=== PATIENT | female | born 1990 | race Caucasian/White ===

== ENCOUNTER 2017-07-05 13:54 | Emergency (ER) | payer BC ==
[2017-07-05 14:05] VITALS: BP 109/67; PULSE 67; RESP 18; TEMP 98.2; O2SAT 98
== END 2017-07-05 14:00 | disposition left against medical advice (07) ==
DX: Z53.21 Procedure and treatment not carried out due to patient leaving prior to being seen by health care provider (principal)

== ENCOUNTER 2017-09-28 02:24 | Emergency (ER) | payer SELFPAY ==
[2017-09-28 02:32] VITALS: RESP 16
[2017-09-28 03:40] LABS: COLOR YELLOW; LEUKOCYTE ESTERASE,URINE TRACE (NEGATIVE); NITRITE,URINE NEGATIVE (NEGATIVE)
[2017-09-28 03:46] LABS: BACTERIA 4+ /hpf (NONE SEEN); RBC,URINE 50-182 /hpf (0-3); WBC,URINE 50-182 /hpf (0-3)
--- NOTE | 2017-09-28 03:57 | EDPHY ---
H & P Stated Complaint: c/o severe lower abd/lower back pain/blood in urine x 1 week Time Seen by Provider: 09/28/17 02:59 HPI/ROS: Chief Complaint: Hematuria, abdominal pain HPI: 27-year-old woman had urinary tract infection symptoms of increasing urination with urination and hematuria for the last 3 days. She has a history of urinary tract infections and kidney stones in the past. She was seen at urgent care started on Keflex. Patient states that her pain in her lower pelvis has been worsening. It feels similar to prior episodes. Some nausea no vomiting. No fevers or chills. Patient's arms him some low back cramping pain. In his bilateral. Last menstrual period was 10 days ago. She is not sexually active. Has never been . Is not having any vaginal bleeding at this time. ROS: 10 point Review of Systems is negative except as noted in the HPI. PMH: Kidney stones Social History: No smoking Family History: non-contributory Physical Exam: Gen: Awake, Alert, No Distress HEENT: Nose: no rhinorrhea Eyes: PERRLA, EOMI Mouth: Moist mucosa Neck: Supple, no JVD Chest: nontender, lungs clear to auscultation Heart: S1, S2 normal, no murmur Abd: Soft, very mild suprapubic tenderness, no other abdominal tenderness, no guarding Back: no CVA tenderness, no midline tenderness Ext: no edema, non-tender Skin: no rash Neuro: CN II-XII intact, Sensation grossly intact, Strength 5/5 in bilateral upper and lower extremities - Medical/Surgical History Hx Asthma: No Hx Chronic Respiratory Disease: No Hx Diabetes: No Hx Cardiac Disease: No Hx Renal Disease: No Hx Cirrhosis: No Hx Alcoholism: No Hx HIV/AIDS: No Hx Splenectomy or Spleen Trauma: No Other PMH: kidney stones, depression - Social History Smoking Status: Former smoker Constitutional: Initial Vital Signs Heart Rate 73 09/28/17 02:28 Respiratory Rate 16 09/28/17 02:28 Blood Pressure 112/73 09/28/17 02:28 O2 Sat (%) 97 09/28/17 02:28 O2 Delivery Mode Room Air Allergies/Adverse Reactions: acetaminophen [From Percocet] Allergy (Intermediate, Verified 09/28/17 02:33) Vomiting oxycodone [From Percocet] Allergy (Intermediate, Verified 09/28/17 02:33) Vomiting Home Medications: Medication Instructions Recorded Keflex 09/28/17 Medical Decision Making ED Course/Re-evaluation: Patient presenting with hematuria and lower pelvic pain. Urinalysis is consistent with hematuria with no significant findings suggestive of urinary tract infection. I think her symptoms are consistent with kidney stone which she has had in the past. Patient actually states she has felt much better since coming the emergency department without any treatment. We have had a long conversation regarding imaging to evaluate for kidney stone. Patient currently is uninsured and does not want have any expensive imaging done at this time. She would prefer to follow up with Urology as an outpatient. I have counseled her that should her symptoms worsen, should she have fevers or chills, uncontrolled nausea vomiting, worsening pain, or any other concerns she needs to return for further evaluation. Patient agrees to do so. Will refer her for outpatient follow-up with Urology. - Data Points Laboratory Results: 09/28/17 02:40 Urine Color YELLOW Urine Appearance MODERATELY TURBID Urine pH 5.0 (5.0-7.5) Ur Specific Lillian 1.027 (1.002-1.030) Urine Protein 2+ H (NEGATIVE) Urine Ketones NEGATIVE (NEGATIVE) Urine Blood 3+ H (NEGATIVE) Urine Nitrate NEGATIVE (NEGATIVE) Urine Bilirubin NEGATIVE (NEGATIVE) Urine Urobilinogen NEGATIVE EU EU (0.2-1.0) Ur Leukocyte Esterase TRACE H (NEGATIVE) Urine RBC Pending Urine WBC Pending Ur Epithelial Cells Pending Urine Glucose NEGATIVE (NEGATIVE) Departure - Departure Disposition: Home, Routine, Self-Care Clinical Impression: Hematuria Condition: Good Instructions: Hematuria (ED), Renal Colic (ED) Additional Instructions: Follow up with Urology, call later today for the next available appointment. Return to the emergency department for increasing pain, fevers or chills, nausea , vomiting, lightheadedness, or any other concerns. You may take ibuprofen 600 mg 3 times a day as needed for pain. You may also take acetaminophen [id number] as well. Referrals: Katherine Suarez MD [Medical Doctor] - As per Instructions
[2017-09-28] MEDS ORDERED: HYDROCOD/APAP 5/325 PREPACK#6 BTL TAKEHOME ONE (04:11)
[2017-09-28 04:27] VITALS: BP 112/67; PULSE 76; O2SAT 98
== END 2017-09-28 04:27 | disposition home or self-care (01) ==
DX: R31.9 Hematuria, unspecified (principal); Z87.891 Personal history of nicotine dependence

== ENCOUNTER 2017-10-01 10:42 | Emergency (ER) | payer SELFPAY ==
[2017-10-01 10:58] VITALS: TEMP 98.4
--- NOTE | 2017-10-01 14:34 | EDPHY ---
H & P Time Seen by Provider: 10/01/17 14:31 HPI/ROS: Chief complaint. Abdominal pain Patient was seen by Dr. Amaro and not by me. Smoking Status: Former smoker Constitutional: Initial Vital Signs Temperature (C) 36.9 C 10/01/17 10:50 Heart Rate 70 10/01/17 10:50 Respiratory Rate 16 10/01/17 10:50 Blood Pressure 100/72 10/01/17 10:50 O2 Sat (%) 94 10/01/17 10:50 O2 Delivery Mode Room Air Allergies/Adverse Reactions: acetaminophen [From Percocet] Allergy (Intermediate, Verified 10/01/17 10:53) Vomiting oxycodone [From Percocet] Allergy (Intermediate, Verified 10/01/17 10:53) Vomiting Home Medications: Medication Instructions Recorded Keflex 09/28/17 Hydrocodone/APAP 5/325 [Foley 1 - 2 tab PO Q4H PRN #14 tab 10/01/17 5/325 (RX)] Medical Decision Making - Diagnostics Imaging Results: Imaging Impressions Abdomen/Pelvis CT 10/01/17 14:41 Impression: 1. Mild hydronephrosis on the left secondary to a calculus at the left UPJ as detailed above. 2. Mild thickening of the hoang of the left renal pelvis. Rule out superimposed infection/inflammation. 3. Follicular cyst suspected left adnexa. Attention: This CT examination is specifically designed to evaluate patients who are clinically suspected of having acute obstructive uropathy. This examination does not use radiographic contrast, and as such, provides only a limited evaluation of the abdomen, pelvis and retroperitoneum. If there is further clinical suspicion for pathological conditions other than obstructive uropathy, a complete CT evaluation of the abdomen and pelvis utilizing intravenous, oral, and rectal contrast should be considered. Findings discussed with Sunny Amaro MD at 15:40 hour, 10/01/2017. Pelvic/Renal Ultrasound 10/01/17 16:06 Impression: 1. No ovarian torsion or significant free fluid. 2. Left ovarian 3.6 x 3.3 x 2.9 cm simple cyst. 3. Left ovarian complex cyst 2 x 1.1 x 0.9 cm cyst or follicle. Recommendation: Follow-up ultrasound in 6-12 weeks. Findings and recommendations discussed with Emergency Department physician, Sunny Amaro MD at 18:06 hour, 10/01/2017. Final report concurs with initial preliminary interpretation. - Data Points Laboratory Results: Laboratory Results 10/01/17 14:40 10/01/17 14:40 10/01/17 10/01/17 10/01/17 14:40 14:40 14:40 WBC RBC Hgb Hct MCV MCH MCHC RDW Plt Count MPV Neut % (Auto) Lymph % (Auto) Howard % (Auto) Eos % (Auto) Baso % (Auto) Nucleat RBC Rel Count Absolute Neuts (auto) Absolute Lymphs (auto) Absolute Monos (auto) Absolute Eos (auto) Absolute Basos (auto) Absolute Nucleated RBC Immature Gran % Immature Gran # Sodium 140 mEq/L mEq/L (134-144) Potassium 3.5 mEq/L mEq/L (3.5-5.2) Chloride 104 mEq/L mEq/L (97-110) Carbon Dioxide 24 mEq/l mEq/l (22-31) Anion Gap 12 mEq/L mEq/L (8-16) BUN 5 mg/dL L mg/dL (7-23) Creatinine 0.6 mg/dL mg/dL (0.6-1.0) Estimated GFR > 60 Glucose 86 mg/dL mg/dL (70-100) Calcium 9.7 mg/dL mg/dL (8.5-10.4) Beta HCG, Qual NEGATIVE Urine Color YELLOW Urine Appearance CLEAR Urine pH 6.0 (5.0-7.5) Ur Specific Strang 1.006 (1.002-1.030) Urine Protein 1+ H (NEGATIVE) Urine Ketones 1+ H (NEGATIVE) Urine Blood 3+ H (NEGATIVE) Urine Nitrate NEGATIVE (NEGATIVE) Urine Bilirubin NEGATIVE (NEGATIVE) Urine Urobilinogen NEGATIVE EU EU (0.2-1.0) Ur Leukocyte Esterase NEGATIVE (NEGATIVE) Urine RBC 50-182 /hpf H /hpf (0-3) Urine WBC 10-15 /hpf H /hpf (0-3) Ur Epithelial Cells TRACE /lpf /lpf (NONE-1+) Calcium Oxalate Crystal PRESENT /hpf /hpf (NONE-1+) Urine Bacteria 1+ /hpf H /hpf (NONE SEEN) Urine Glucose NEGATIVE (NEGATIVE) 10/01/17 14:40 WBC 5.89 10^3/uL 10^3/uL (3.80-9.50) RBC 4.49 10^6/uL 10^6/uL (4.18-5.33) Hgb 15.0 g/dL g/dL (12.6-16.3) Hct 43.5 % % (38.0-47.0) MCV 96.9 fL fL (81.5-99.8) MCH 33.4 pg pg (27.9-34.1) MCHC 34.5 g/dL g/dL (32.4-36.7) RDW 12.6 % % (11.5-15.2) Plt Count 189 10^3/uL 10^3/uL (150-400) MPV 11.4 fL fL (8.7-11.7) Neut % (Auto) 52.3 % % (39.3-74.2) Lymph % (Auto) 37.2 % % (15.0-45.0) Howard % (Auto) 7.1 % % (4.5-13.0) Eos % (Auto) 2.7 % % (0.6-7.6) Baso % (Auto) 0.5 % % (0.3-1.7) Nucleat RBC Rel Count 0.0 % % (0.0-0.2) Absolute Neuts (auto) 3.08 10^3/uL 10^3/uL (1.70-6.50) Absolute Lymphs (auto) 2.19 10^3/uL 10^3/uL (1.00-3.00) Absolute Monos (auto) 0.42 10^3/uL 10^3/uL (0.30-0.80) Absolute Eos (auto) 0.16 10^3/uL 10^3/uL (0.03-0.40) Absolute Basos (auto) 0.03 10^3/uL 10^3/uL (0.02-0.10) Absolute Nucleated RBC 0.00 10^3/uL 10^3/uL (0-0.01) Immature Gran % 0.2 % % (0.0-1.1) Immature Gran # 0.01 10^3/uL 10^3/uL (0.00-0.10) Sodium Potassium Chloride Carbon Dioxide Anion Gap BUN Creatinine Estimated GFR Glucose Calcium Beta HCG, Qual Urine Color Urine Appearance Urine pH Ur Specific Strang Urine Protein Urine Ketones Urine Blood Urine Nitrate Urine Bilirubin Urine Urobilinogen Ur Leukocyte Esterase Urine RBC Urine WBC Ur Epithelial Cells Calcium Oxalate Crystal Urine Bacteria Urine Glucose Medications Given: Discontinued Medications Sodium Chloride (Ns) 1,000 mls @ 0 mls/hr IV EDNOW ONE; Wide Open PRN Reason: Protocol Stop: 10/01/17 14:41 Last Admin: 10/01/17 14:59 Dose: 1,000 mls Ketorolac Tromethamine (Toradol) 30 mg IVP EDNOW ONE Stop: 10/01/17 17:25 Last Admin: 10/01/17 17:40 Dose: 30 mg Lorazepam (Ativan Injection) 1 mg IVP EDNOW ONE Stop: 10/01/17 15:53 Last Admin: 10/01/17 16:07 Dose: 1 mg Lorazepam (Ativan Injection) 1 mg IVP EDNOW ONE Stop: 10/01/17 17:09 Last Admin: 10/01/17 17:40 Dose: 1 mg Magnesium Citrate (Magnesium Citrate) 300 ml PO ONCE ONE Stop: 10/01/17 15:54 Last Admin: 10/01/17 17:40 Dose: 1 btl Departure - Departure Disposition: Home, Routine, Self-Care Clinical Impression: Calculus of left kidney, Hydronephrosis, left, Ovarian cyst, left, Constipation Condition: Good Instructions: Ovarian Cyst (ED), Constipation (ED), Kidney Stones (ED), How to Strain Your Urine (ED) Additional Instructions: 1. Follow up with a urologist this week for further evaluation of your kidney stone. 2. Follow up with an [employer] specialist as needed for further evaluation of your ovarian cyst. 3. Take ibuprofen or Tylenol as directed below as needed for pain. Take Foley as prescribed as needed for severe pain. Do not take Tylenol while you are taking Vicodin as this medication already contains acetaminophen. See below for acetaminophen dosage precautions. 4. Take one half bottle of magnesium citrate tonight as we discussed for constipation relief. 5. Return to the emergency department for fever, severe pain, inability to urinate, uncontrollable vomiting or diarrhea, or other concerns. 6. Strain urine to try and catch the kidney stone and bring this to the urology appointment. Adult Pain & Fever Control: We recommend Acetaminophen (Tylenol) and Ibuprofen (Motrin,Advil) for pain and fever control. When fever is high or pain severe, both drugs can be used at the same time, but at different intervals. Please note the time differences. Your dose is: Acetaminophen 650mg every 4 to 6 hours Ibuprofen 600mg every 6-8 hours with food Note: do not take Acetaminophen with Hydrocodone (Vicodin, Lortab) or Oxycodone (Percocet). These medications also contain Acetaminophen. No more than 3000mg of Acetaminophen should be taken in 24 hours (for an adult). Referrals: Mitch Kim MD [Medical Doctor] - As per Instructions Heather Reid MD [Medical Doctor] - As per Instructions Prescriptions: Hydrocodone/APAP 5/325 [Foley 5/325 (RX)] 1 - 2 tab PO Q4H PRN #14 tab PRN Reason: Pain, Moderate
--- NOTE | 2017-10-01 14:34 | EDPHY ---
HPI/HX/ROS/PE/MDM Narrative: Gracia Preciado Template CHIEF COMPLAINT: HPI: This patient is a 27 year old female with history of kidney stones complaining of abdominal pain and hematuria ongoing for the last 11 days. One week ago, she was evaluated at urgent care and placed on Keflex for a urinary tract infection. She visited this emergency department 09/28/17 and was discharged home with pain medication and a referral to urology with suspicion for kidney stones. She declined imaging at that time, and was counseled to return should her symptoms worsen. Sunday night she had the "worst pain ever in my life", which she rates as 11/10 severity. She did not return to the emergency department at that time, and her pain has decreased since then but remains present. The pain has alternated between her right and left lower abdominal area and pelvis, sometimes radiating to her back. Today, she has completed her prescription of narcotic pain medication and has taken two extra-strength Tylenol for pain relief. Last menstrual period was two weeks ago. She denies fever, nausea, vomiting, diarrhea, or other associated symptoms. She denies any prior abdominal surgeries. ROS: 10 point Review of Systems is negative except as noted in the HPI. REVIEW OF SYSTEMS: Aside from elements discussed in the HPI, a comprehensive 10-point review of systems was reviewed and is negative. PMH: Kidney stones, Major depressive disorder. No prior surgical history. SOCIAL HISTORY: Nonsmoker. Single. Lives in [place]. PHYSICAL EXAM: General:Patient is alert, in no acute distress. ENT:Eyes are normal to inspection. ENT inspection normal. Neck: Normal inspection. Full range of motion. Respiratory:No respiratory distress. Breath sounds normal bilaterally. Cardiovascular: Regular rate and rhythm. Strong peripheral pulses. Normal cap refill. Abdomen: LLQ tenderness. There are no peritoneal signs. There are normal bowel sounds. Back: Normal to inspection. No tenderness to palpation. Skin: Normal color. No rash. Warm and dry. Extremities: Normal appearance. Full range of motion. Neuro: Oriented x3. Normal motor function. Normal sensory function. ED Course: 27 year old female with history of kidney stones presents with 11 day history of abdominal/pelvic pain and hematuria. The patient has been treated for possible UTI with a course of Keflex which did not relieve her symptoms. Exam reveals left lower quadrant tenderness. IV established. Plan for labs including CBC, chemistries, UA, BHCG. Administered 1L IV NS. The patient agrees to CT imaging at this time. Plan for CT abdomen/pelvis. Reviewed laboratory results. CBC and chemistries within normal limits. UA positive for blood 3+, calcium oxalate crystals present. BHCG negative. 15:[address] Ramos, radiologist. CT abdomen/pelvis shows 4x5mm calculus in left ureteropelvic junction. Additionally, there is suspicion for a left follicular cyst, and evidence of constipation. 15:45 Reassessed patient. Discussed imaging results. Plan for US pelvis to further evaluate adnexal cyst. Administered 1mg IV Ativan. 16:00 Administered 300mL PO magnesium citrate for constipation relief. 17:25 Administered 30mg IV Toradol for pain relief. 18:[address] Russell, radiologist. US pelvis positive for left sided ovarian cyst. No torsion. 18:23 Reassessed patient. Discussed imaging results. Plan to discharge home in good condition with prescription for [place] for pain relief, referral to urology and [facility] for followup. She will take magnesium citrate at home for constipation relief. Return precautions discussed. She is comfortable with this plan. MDM: This is a complicated patient who presents with numerous symptoms and is found to have numerous issues, made more difficult by significant component of anxiety. Objectively, the patient has: 1. Hematuria - this has been present on two recent UAs. Her CTAP reveals a stone in the proximal UPJ on the left. I considered concommitant UTI, but patient is currently on course of Keflex, and previous urine cx did not grow any organisms. She has a normal WBC and no fever, so I think this is unlikely. She will need to follow-up with Urology as directed on previous visit. 2. LLQ pain - this is the primary reason for her visit today. Given proximal location of stone and tenderness in the LLQ on exam, I doubt this is due to kidney stone. Her CTAP revealed a left ovarian cyst and this was evaluated further by US. I suspect this is likely the etiology of her pain and tenderness. There is no evidence of torsion or abscess. The patient is also quite constipated however, and this may be contributing to her symptoms. She is requesting additional Vicodin for pain of kidney stone and I cautioned her regarding risk of further constipation. We have given her MgCitrate to go home with to try and relieve constipation. The patient is comfortable with plan for discharge home. She understands the need for urgent Urology follow-up. - Data Points Imaging Results: Imaging Impressions Abdomen/Pelvis CT 10/01/17 14:41 Impression: 1. Mild hydronephrosis on the left secondary to a calculus at the left UPJ as detailed above. 2. Mild thickening of the hoang of the left renal pelvis. Rule out superimposed infection/inflammation. 3. Follicular cyst suspected left adnexa. Attention: This CT examination is specifically designed to evaluate patients who are clinically suspected of having acute obstructive uropathy. This examination does not use radiographic contrast, and as such, provides only a limited evaluation of the abdomen, pelvis and retroperitoneum. If there is further clinical suspicion for pathological conditions other than obstructive uropathy, a complete CT evaluation of the abdomen and pelvis utilizing intravenous, oral, and rectal contrast should be considered. Findings discussed with Sunny Amaro MD at 15:40 hour, 10/01/2017. Pelvic/Renal Ultrasound 10/01/17 16:06 Impression: 1. No ovarian torsion or significant free fluid. 2. Left ovarian 3.6 x 3.3 x 2.9 cm simple cyst. 3. Left ovarian complex cyst 2 x 1.1 x 0.9 cm cyst or follicle. Recommendation: Follow-up ultrasound in 6-12 weeks. Findings and recommendations discussed with Emergency Department physician, Sunny Amaro MD at 18:06 hour, 10/01/2017. Final report concurs with initial preliminary interpretation. Imaging: Discussed imaging studies w/ body recall instructor Radiologist Laboratory Results: Laboratory Results 10/01/17 14:40 10/01/17 14:40 10/01/17 10/01/17 10/01/17 14:40 14:40 14:40 WBC RBC Hgb Hct MCV MCH MCHC RDW Plt Count MPV Neut % (Auto) Lymph % (Auto) [place] % (Auto) Eos % (Auto) Baso % (Auto) Nucleat RBC Rel Count Absolute Neuts (auto) Absolute Lymphs (auto) Absolute Monos (auto) Absolute Eos (auto) Absolute Basos (auto) Absolute Nucleated RBC Immature Gran % Immature Gran # Sodium 140 mEq/L mEq/L (134-144) Potassium 3.5 mEq/L mEq/L (3.5-5.2) Chloride 104 mEq/L mEq/L (97-110) Carbon Dioxide 24 mEq/l mEq/l (22-31) Anion Gap 12 mEq/L mEq/L (8-16) BUN 5 mg/dL L mg/dL (7-23) Creatinine 0.6 mg/dL mg/dL (0.6-1.0) Estimated GFR > 60 Glucose 86 mg/dL mg/dL (70-100) Calcium 9.7 mg/dL mg/dL (8.5-10.4) Beta HCG, Qual NEGATIVE Urine Color YELLOW Urine Appearance CLEAR Urine pH 6.0 (5.0-7.5) Ur Specific [place] 1.006 (1.002-1.030) Urine Protein 1+ H (NEGATIVE) Urine Ketones 1+ H (NEGATIVE) Urine Blood 3+ H (NEGATIVE) Urine Nitrate NEGATIVE (NEGATIVE) Urine Bilirubin NEGATIVE (NEGATIVE) Urine Urobilinogen NEGATIVE EU EU (0.2-1.0) Ur Leukocyte Esterase NEGATIVE (NEGATIVE) Urine RBC 50-182 /hpf H /hpf (0-3) Urine WBC 10-15 /hpf H /hpf (0-3) Ur Epithelial Cells TRACE /lpf /lpf (NONE-1+) Calcium Oxalate Crystal PRESENT /hpf /hpf (NONE-1+) Urine Bacteria 1+ /hpf H /hpf (NONE SEEN) Urine Glucose NEGATIVE (NEGATIVE) 10/01/17 14:40 WBC 5.89 10^3/uL 10^3/uL (3.80-9.50) RBC 4.49 10^6/uL 10^6/uL (4.18-5.33) Hgb 15.0 g/dL g/dL (12.6-16.3) Hct 43.5 % % (38.0-47.0) MCV 96.9 fL fL (81.5-99.8) MCH 33.4 pg pg (27.9-34.1) MCHC 34.5 g/dL g/dL (32.4-36.7) RDW 12.6 % % (11.5-15.2) Plt Count 189 10^3/uL 10^3/uL (150-400) MPV 11.4 fL fL (8.7-11.7) Neut % (Auto) 52.3 % % (39.3-74.2) Lymph % (Auto) 37.2 % % (15.0-45.0) Rains % (Auto) 7.1 % % (4.5-13.0) Eos % (Auto) 2.7 % % (0.6-7.6) Baso % (Auto) 0.5 % % (0.3-1.7) Nucleat RBC Rel Count 0.0 % % (0.0-0.2) Absolute Neuts (auto) 3.08 10^3/uL 10^3/uL (1.70-6.50) Absolute Lymphs (auto) 2.19 10^3/uL 10^3/uL (1.00-3.00) Absolute Monos (auto) 0.42 10^3/uL 10^3/uL (0.30-0.80) Absolute Eos (auto) 0.16 10^3/uL 10^3/uL (0.03-0.40) Absolute Basos (auto) 0.03 10^3/uL 10^3/uL (0.02-0.10) Absolute Nucleated RBC 0.00 10^3/uL 10^3/uL (0-0.01) Immature Gran % 0.2 % % (0.0-1.1) Immature Gran # 0.01 10^3/uL 10^3/uL (0.00-0.10) Sodium Potassium Chloride Carbon Dioxide Anion Gap BUN Creatinine Estimated GFR Glucose Calcium Beta HCG, Qual Urine Color Urine Appearance Urine pH Ur Specific [place] Urine Protein Urine Ketones Urine Blood Urine Nitrate Urine Bilirubin Urine Urobilinogen Ur Leukocyte Esterase Urine RBC Urine WBC Ur Epithelial Cells Calcium Oxalate Crystal Urine Bacteria Urine Glucose Medications Given: Discontinued Medications Sodium Chloride (Ns) 1,000 mls @ 0 mls/hr IV EDNOW ONE; Wide Open PRN Reason: Protocol Stop: 10/01/17 14:41 Last Admin: 10/01/17 14:59 Dose: 1,000 mls Ketorolac Tromethamine (Toradol) 30 mg IVP EDNOW ONE Stop: 10/01/17 17:25 Last Admin: 10/01/17 17:40 Dose: 30 mg Lorazepam (Ativan Injection) 1 mg IVP EDNOW ONE Stop: 10/01/17 15:53 Last Admin: 10/01/17 16:07 Dose: 1 mg Lorazepam (Ativan Injection) 1 mg IVP EDNOW ONE Stop: 10/01/17 17:09 Last Admin: 10/01/17 17:40 Dose: 1 mg Magnesium Citrate (Magnesium Citrate) 300 ml PO ONCE ONE Stop: 10/01/17 15:54 Last Admin: 10/01/17 17:40 Dose: 1 btl General Time Seen by Provider: 10/01/17 14:31 Initial Vital Signs: Initial Vital Signs Temperature (C) 36.9 C 10/01/17 10:50 Heart Rate 70 10/01/17 10:50 Respiratory Rate 16 10/01/17 10:50 Blood Pressure 100/72 10/01/17 10:50 O2 Sat (%) 94 10/01/17 10:50 O2 Delivery Mode Room Air Allergies/Adverse Reactions: acetaminophen [From Percocet] Allergy (Intermediate, Verified 10/01/17 10:53) Vomiting oxycodone [From Percocet] Allergy (Intermediate, Verified 10/01/17 10:53) Vomiting Home Medications: Medication Instructions Recorded Keflex 09/28/17 Hydrocodone/APAP 5/325 [[place] 1 - 2 tab PO Q4H PRN #14 tab 10/01/17 5/325 (RX)] Departure - Departure Disposition: Home, Routine, Self-Care Clinical Impression: Calculus of left kidney, Hydronephrosis, left, Ovarian cyst, left Constipation Qualifiers: Constipation type: unspecified constipation type Qualified Code(s): K59.00 - Constipation, unspecified Condition: Good Instructions: Ovarian Cyst (ED), Constipation (ED), Kidney Stones (ED), How to Strain Your Urine (ED) Additional Instructions: 1. Follow up with a urologist this week for further evaluation of your kidney stone. 2. Follow up with an [facility] specialist as needed for further evaluation of your ovarian cyst. 3. Take ibuprofen or Tylenol as directed below as needed for pain. Take [place] as prescribed as needed for severe pain. Do not take Tylenol while you are taking Vicodin as this medication already contains acetaminophen. See below for acetaminophen dosage precautions. 4. Take one half bottle of magnesium citrate tonight as we discussed for constipation relief. 5. Return to the emergency department for fever, severe pain, inability to urinate, uncontrollable vomiting or diarrhea, or other concerns. 6. Strain urine to try and catch the kidney stone and bring this to the urology appointment. Adult Pain & Fever Control: We recommend Acetaminophen (Tylenol) and Ibuprofen (Motrin,Advil) for pain and fever control. When fever is high or pain severe, both drugs can be used at the same time, but at different intervals. Please note the time differences. Your dose is: Acetaminophen 650mg every 4 to 6 hours Ibuprofen 600mg every 6-8 hours with food Note: do not take Acetaminophen with Hydrocodone (Vicodin, Lortab) or Oxycodone (Percocet). These medications also contain Acetaminophen. No more than 3000mg of Acetaminophen should be taken in 24 hours (for an adult). Referrals: Mitch Kim MD [Medical Doctor] - As per Instructions Heather Reid MD [Medical Doctor] - As per Instructions Prescriptions: Hydrocodone/APAP 5/325 [[place] 5/325 (RX)] 1 - 2 tab PO Q4H PRN #14 tab PRN Reason: Pain, Moderate Report Scribed for: Sunny Amaro Report Scribed by: Angelita Lamb Date of Report: 10/01/17 Time of Report: 14:34 Physician Review and Approval Statement: Portions of this note were transcribed by an ED scribe. I personally performed the history, physical exam, and medical decision making; and confirm the accuracy of the information in the transcribed note.
[2017-10-01] MEDS ORDERED: NS 1,000 ML IV ONE (14:40)
[2017-10-01 14:56] LABS: % IMMATURE GRANULYOCYTES 0.2 % (0.0-1.1); ABSOLUTE IMMATURE GRANULOCYTES 0.01 10^3/uL (0.00-0.10); ADD DIFF? NO; ADD MORPH? NO; ADD SCAN? NO; ATYPICAL LYMPHOCYTE FLAG 10 (0-99); FRAGMENT RBC FLAG 0 (0-99); HEMATOCRIT 43.5 % (38.0-47.0); LEFT SHIFT FLG 0 (0-99); LIPEMIA HEMOLYSIS FLAG 90 (0-99); MEAN CELL HEMOGLOBIN 33.4 pg (27.9-34.1); MEAN CELL HEMOGLOBIN CONCENTR. 34.5 g/dL (32.4-36.7); MEAN CELL VOLUME 96.9 fL (81.5-99.8); MEAN PLATELET VOLUME 11.4 fL (8.7-11.7); PLATELET CLUMPS FLAG 0 (0-99); PLATELET COUNT 189 10^3/uL (150-400); RED BLOOD CELL COUNT 4.49 10^6/uL (4.18-5.33); RED CELL DISTRIBUTION WIDTH 12.6 % (11.5-15.2)
[2017-10-01 15:02] LABS: COLOR YELLOW; LEUKOCYTE ESTERASE,URINE NEGATIVE (NEGATIVE); NITRITE,URINE NEGATIVE (NEGATIVE)
[2017-10-01 15:06] LABS: BACTERIA 1+ /hpf (NONE SEEN); RBC,URINE 50-182 /hpf (0-3)
[2017-10-01 15:07] LABS: ANION GAP 12 mEq/L (8-16); CALCIUM 9.7 mg/dL (8.5-10.4); CARBON DIOXIDE 24 mEq/l (22-31); CHLORIDE 104 mEq/L (97-110); CREATININE 0.6 mg/dL (0.6-1.0); GLOMERULAR FILTRATION RATE > 60; GLUCOSE 86 mg/dL (70-100); POTASSIUM 3.5 mEq/L (3.5-5.2); SODIUM 140 mEq/L (134-144)
[2017-10-01] MEDS ORDERED: LORazepam 2 MG/ML INJ IVP ONE ×2 (15:52→17:08)
[2017-10-01] MEDS ORDERED: MAGNESIUM CITRATE 300 ML BOTTLE PO ONE (15:53)
[2017-10-01 16:08] VITALS: O2SAT 98
[2017-10-01] MEDS ORDERED: KETOROLAC 30 MG/1 ML SDV IVP ONE (17:24)
[2017-10-01 19:15] VITALS: BP 124/89; PULSE 80; RESP 16
== END 2017-10-01 19:14 | disposition home or self-care (01) ==
DX: N20.0 Calculus of kidney (principal); N13.30 Unspecified hydronephrosis; N83.202 Unspecified ovarian cyst, left side; K59.00 Constipation, unspecified; E86.9 Volume depletion, unspecified
CPT/HCPCS: 96374; J1885; J2060

== ENCOUNTER 2017-10-30 13:27 | Inpatient (IN) | payer SELFPAY ==
--- NOTE | 2017-10-30 14:37 | EDPHY ---
H & P Stated Complaint: L sided abd/flank pain;concern recurrence kid stone;wants it removed Time Seen by Provider: 10/30/17 14:37 - Personal History LMP (Females 10-55): 15-21 Days Ago Current Tetanus Diphtheria and Acellular Pertussis (TDAP): Yes - Medical/Surgical History Hx Asthma: No Hx Chronic Respiratory Disease: No Hx Diabetes: No Hx Cardiac Disease: No Hx Renal Disease: No Hx Cirrhosis: No Hx Alcoholism: No Hx HIV/AIDS: No Hx Splenectomy or Spleen Trauma: No Other PMH: kidney stones, depression, ovarian cyst - Social History Smoking Status: Former smoker Constitutional: Initial Vital Signs Temperature (C) 36.7 C 10/30/17 13:31 Heart Rate 90 10/30/17 13:31 Respiratory Rate 18 10/30/17 13:31 Blood Pressure 108/67 10/30/17 13:31 O2 Sat (%) 99 10/30/17 13:31 O2 Delivery Mode Room Air Home Medications: Medication Instructions Recorded Hydrocodone/APAP 5/325 [[place] 1 - 2 tab PO Q4H PRN #14 tab 10/01/17 5/325 (RX)] Acetaminophen [Tylenol ES 500 mg 500 mg PO Q6 PRN 10/30/17 (*)] Herbals/Supplements -Info Only 1 ea PO DAILY 10/30/17 Ibuprofen [Motrin (*)] 200 - 600 mg PO DAILY PRN 10/30/17 Multivitamins [Multivitamin (*)] 1 each PO DAILY 10/30/17 Tamsulosin HCl [Flomax 0.4 MG (*)] 0.4 mg PO DAILY@18 10/30/17 Vitamin B Complex [B Complex] 1 each PO DAILY 10/30/17 Medical Decision Making - Diagnostics Imaging Results: Imaging Impressions Abdomen/Pelvis Ultrasound 10/30/17 14:50 Impression: 1. Moderate left hydronephrosis secondary to a proximal left ureteral 13 x 5 mm calculus which is unchanged in position since October 01, 2017. 2. No right hydronephrosis or shadowing right renal calculi. Findings and recommendations discussed with Emergency Department physician, Shoaib Ortiz MD, at 1614 hour, 10/30/2017. Final report concurs with initial preliminary interpretation. Imaging: Discussed imaging studies w/ call center rn Radiologist, I viewed and interpreted images myself ED Course/Re-evaluation: CHIEF COMPLAINT: Left flank and left lower quadrant pain HISTORY OF PRESENT ILLNESS: This patient has been here 3 times now for pain from a left kidney stone. She has had similar problems in the past and has followed up with Dr. Kim from Urology. Dr. Kim currently has her on Flomax and some [place] but she does not like taking the [place] and she has vomited several times from the pain and is unable to keep down any ibuprofen Tylenol or [place] at this time. She also noticed that her urine changed color and looks bloody now. She denies any fevers or chills. She denies any true flank pain most of the pain is along the left paracolic gutter and left lower quadrant area. She does have a history of a recent ovarian cyst on that area but she says those symptoms have resolved completely and she has a follow-up appointment with an [facility] on November 05. REVIEW OF SYSTEMS: A 10 point review of systems was performed and is negative with the exception of the elements mentioned in the history of present illness. PHYSICAL EXAM: HR, BP, O2 Sat, RR. Temp noted General Appearance: Alert, well hydrated, appropriate, and non-toxic appearing. Head: Atraumatic without scalp tenderness or obvious injury Eyes: Pupils equal, round, reactive to light and accommodation, EOMI, no trauma , no injection. Ears: Clear bilaterally, no perforation, normal landmarks Nose: Atraumatic, no rhinorrhea, clear. Throat: Mucus membranes moist. Neck: Supple, nontender, no lymphadenopathy. Respiratory: No retractions, no distress, no wheezes, and no accessory muscle use. Lungs are clear to auscultation bilaterally. Cardiovascular: Regular rate and rhythm, no murmurs, rubs, or gallops. Good capillary refill all extremities. Gastrointestinal: Abdomen is soft, mild tenderness in the left pericolic gutter and left lower quadrant area but I am not actually worsening the pain and just pushing in the area of the pain., non-distended, no masses, no rebound , no guarding, no peritoneal signs. Musculoskeletal: Normal active ROM of all extremities, atraumatic. Neurological: Alert, appropriate, and interactive. Non-focal neuro. Skin: No rashes, good turgor, no nodules on palpation. Past medical history: Urolithiasis, ovarian cysts Past surgical history: None Family history: Noncontributory Social history: Single, employed at an [employer], does not abuse tobacco drugs or alcohol DIAGNOSTICS/PROCEDURES/CRITICAL CARE TIME: Study: Ultrasound of the: The left kidney and ureter and bladder Indication: Recurrent and worsening pain nausea and vomiting from a known left kidney stone for already had CT scan Results: US scan of the abdomen bili limited retroperitoneal was obtained. The results of the study reveal moderate hydronephrosis with a 13mm stone in the left proximal ureter. The study was read by the radiologist, Dr. Russell. I viewed the images myself on the PACS system. DIFFERENTIAL DIAGNOSIS: The differential diagnosis for the patient's flank pain included but was not limited to musculoskeletal causes, kidney stone, pyelonephritis, shingles, diverticulitis, appendicitis, and aortic aneurysm. MEDICAL DECISION MAKING: This patient has recurrent symptoms from a known left kidney stone. She is currently taking Flomax. She has had no evidence of infected urine in the past however I will recheck that. I will also recheck her laboratory studies and perform an additional ultrasound. I am hesitant to expose her to CT radiation once again and I will look for any significant hydronephrosis or hydroureter and see if we can see the stone on ultrasound. She currently sees Dr. Kim from Urology. 1mg IV Dilaudid, 30mg IV Toradol , 4mg IV Zofran, and 2L IV NS administered. 1616: Spoke with Dr. Russell, radiologist, he reports the patient has moderate hydronephrosis and a left proximal ureter 13mm stone. 1636: Patient's urine is positive for blood and ketones. She does not have an infection. 1648: Consulted with Dr. Tyson, urologist, regarding the patient's symptoms and imaging findings. He agrees to consult on this patient. The patient will be a candidate for left ureteral stenting and lithotripsy. 1649: Consulted with Dr. Yusuf, hospitalist, she accepts admission of this patient. 1714: Reassessed patient and discussed imaging findings and plan for admission. Patient is comfortable with this plan. - Data Points Laboratory Results: Laboratory Results 10/30/17 14:32 10/30/17 14:32 10/30/17 10/30/17 10/30/17 16:30 14:32 14:32 WBC RBC Hgb Hct MCV MCH MCHC RDW Plt Count MPV Neut % (Auto) Lymph % (Auto) [place] % (Auto) Eos % (Auto) Baso % (Auto) Nucleat RBC Rel Count Absolute Neuts (auto) Absolute Lymphs (auto) Absolute Monos (auto) Absolute Eos (auto) Absolute Basos (auto) Absolute Nucleated RBC Immature Gran % Immature Gran # Sodium 142 mEq/L mEq/L (134-144) Potassium 3.4 mEq/L L mEq/L (3.5-5.2) Chloride 105 mEq/L mEq/L (97-110) Carbon Dioxide 24 mEq/l mEq/l (22-31) Anion Gap 13 mEq/L mEq/L (8-16) BUN 9 mg/dL mg/dL (7-23) Creatinine 0.8 mg/dL mg/dL (0.6-1.0) Estimated GFR > 60 Glucose 98 mg/dL mg/dL (70-100) Calcium 9.5 mg/dL mg/dL (8.5-10.4) Beta HCG, Qual NEGATIVE Urine Color [place] Urine Appearance MODERATELY TURBID Urine pH 5.0 (5.0-7.5) Ur Specific [place] 1.021 (1.002-1.030) Urine Protein 2+ H (NEGATIVE) Urine Ketones 1+ H (NEGATIVE) Urine Blood 3+ H (NEGATIVE) Urine Nitrate NEGATIVE (NEGATIVE) Urine Bilirubin NEGATIVE (NEGATIVE) Urine Urobilinogen NEGATIVE EU EU (0.2-1.0) Ur Leukocyte Esterase TRACE H (NEGATIVE) Urine RBC 50-182 /hpf H /hpf (0-3) Urine WBC 25-50 /hpf H /hpf (0-3) Ur Epithelial Cells 1+ /lpf /lpf (NONE-1+) Urine Bacteria TRACE /hpf H /hpf (NONE SEEN) Urine Mucus 2+ /lpf H /lpf (NONE-1+) Urine Glucose NEGATIVE (NEGATIVE) 10/30/17 14:32 WBC 7.30 10^3/uL 10^3/uL (3.80-9.50) RBC 4.19 10^6/uL 10^6/uL (4.18-5.33) Hgb 13.8 g/dL g/dL (12.6-16.3) Hct 40.8 % % (38.0-47.0) MCV 97.4 fL fL (81.5-99.8) MCH 32.9 pg pg (27.9-34.1) MCHC 33.8 g/dL g/dL (32.4-36.7) RDW 12.9 % % (11.5-15.2) Plt Count 218 10^3/uL 10^3/uL (150-400) MPV 10.4 fL fL (8.7-11.7) Neut % (Auto) 83.2 % H % (39.3-74.2) Lymph % (Auto) 8.2 % L % (15.0-45.0) [place] % (Auto) 7.7 % % (4.5-13.0) Eos % (Auto) 0.1 % L % (0.6-7.6) Baso % (Auto) 0.4 % % (0.3-1.7) Nucleat RBC Rel Count 0.0 % % (0.0-0.2) Absolute Neuts (auto) 6.07 10^3/uL 10^3/uL (1.70-6.50) Absolute Lymphs (auto) 0.60 10^3/uL L 10^3/uL (1.00-3.00) Absolute Monos (auto) 0.56 10^3/uL 10^3/uL (0.30-0.80) Absolute Eos (auto) 0.01 10^3/uL L 10^3/uL (0.03-0.40) Absolute Basos (auto) 0.03 10^3/uL 10^3/uL (0.02-0.10) Absolute Nucleated RBC 0.00 10^3/uL 10^3/uL (0-0.01) Immature Gran % 0.4 % % (0.0-1.1) Immature Gran # 0.03 10^3/uL 10^3/uL (0.00-0.10) Sodium Potassium Chloride Carbon Dioxide Anion Gap BUN Creatinine Estimated GFR Glucose Calcium Beta HCG, Qual Urine Color Urine Appearance Urine pH Ur Specific [place] Urine Protein Urine Ketones Urine Blood Urine Nitrate Urine Bilirubin Urine Urobilinogen Ur Leukocyte Esterase Urine RBC Urine WBC Ur Epithelial Cells Urine Bacteria Urine Mucus Urine Glucose Medications Given: Discontinued Medications Hydromorphone HCl (Dilaudid) 1 mg IVP EDNOW ONE Stop: 10/30/17 14:50 Last Admin: 10/30/17 14:52 Dose: 1 mg Sodium Chloride (Ns) 1,000 mls @ 3,000 mls/hr IV ONCE ONE Stop: 10/30/17 14:58 Last Admin: 10/30/17 14:41 Dose: 1,000 mls Sodium Chloride (Ns) 1,000 mls @ 0 mls/hr IV ONCE ONE; Wide Open PRN Reason: Protocol Stop: 10/30/17 14:47 Last Admin: 10/30/17 14:46 Dose: 1,000 mls Sodium Chloride (Ns) 1,000 mls @ 0 mls/hr IV ONCE ONE; Wide Open PRN Reason: Protocol Stop: 10/30/17 14:47 Last Admin: 10/30/17 15:37 Dose: 1,000 mls Ketorolac Tromethamine (Toradol) 30 mg IVP EDNOW ONE Stop: 10/30/17 14:47 Last Admin: 10/30/17 14:53 Dose: 30 mg Ondansetron HCl (Zofran) 4 mg IVP EDNOW ONE Stop: 10/30/17 14:40 Last Admin: 10/30/17 14:46 Dose: 4 mg Potassium Chloride (Potassium Chloride Oral Liquid) 20 meq PO ONCE ONE Stop: 10/30/17 17:02 Last Admin: 10/30/17 17:29 Dose: 20 meq Departure - Departure Disposition: [facility] Clinical Impression: Dehydration, Kidney stone on left side Condition: Fair Referrals: Mitch Kim MD [Medical Doctor] - As per Instructions Report Scribed for: Shoaib Ortiz Report Scribed by: Lin Barney Date of Report: 10/30/17 Time of Report: 16:31
[2017-10-30] MEDS ORDERED: NS 1,000 ML IV ONE ×3 (14:39→14:46)
[2017-10-30] MEDS ORDERED: ONDANSETRON 4 MG/2 ML VIAL IVP ONE (14:39)
[2017-10-30] MEDS ORDERED: KETOROLAC 30 MG/1 ML SDV IVP ONE ×2 (14:46→16:59)
[2017-10-30] MEDS ORDERED: KETOROLAC 30 MG/1 ML SDV ONE (14:49)
[2017-10-30] MEDS ORDERED: HYDROmorphONE/DILAUDID 1 MG/ML INJ IVP ONE (14:49)
[2017-10-30] MEDS ORDERED: HYDROmorphONE/DILAUDID 1 MG/ML INJ ONE (14:50)
[2017-10-30 14:54] LABS: PLATELET COUNT 218 10^3/uL (150-400)
[2017-10-30] MEDS ORDERED: ONDANSETRON 4 MG/2 ML VIAL IVP PRN (16:58)
[2017-10-30] MEDS ORDERED: ONDANSETRON DISINTEGRATING 4 MG TAB PO PRN (16:58)
[2017-10-30] MEDS ORDERED: ACETAMINOPHEN 325 MG TAB PO PRN (16:58)
[2017-10-30] MEDS ORDERED: POTASSIUM CL 20 MEQ/15 ML UDCUP PO ONE (17:01)
[2017-10-30] MEDS ORDERED: POTASSIUM CL 20 MEQ/15 ML UDCUP ONE (17:21)
--- NOTE | 2017-10-30 18:40 | GHP ---
[f rep st] HISTORY AND PHYSICAL DATE OF ADMISSION: 10/30/2017 CHIEF COMPLAINT: Left ureteral stone and hydronephrosis. HISTORY OF PRESENT ILLNESS: A 27-year-old female with history of anxiety, depression, who has been s een in the ER 3 times since Thanks with pain secondary to kidney stone. Symptoms initiated wit h hematuria and crampy left suprapubic pain. The pain became very sharp today and came in waves. Sh e felt very shaky, and had 10 episodes of emesis today, nonbloody. Has had intermittent chills and s weats. No fevers. She has been taking Percocet and Flomax per ED recommendations. CT 10/01/2017 showed left UPJ stone, 5.5 x 4 x 4.5 mm. Ultrasound today showing moderate left hydron ephrosis secondary to stone that is 13 x 5 mm. Unchanged position since October 01. REVIEW OF SYSTEMS: I completed a 10-point review of systems, negative except as noted in HPI. PAST MEDICAL HISTORY: Ovarian cyst, anxiety, depression. PAST SURGICAL HISTORY: None. SOCIAL HISTORY: Lives in [place]. She works at [employer] She smokes marijuana daily. Quit tobacco several weeks ago. No alcohol. FAMILY HISTORY: Grandmother with pancreatic cancer. MEDICATIONS: Flomax, [place], herbal supplements, vitamin B complex. ALLERGIES: Previously had Percocet as allergy, but I reviewed with patient today and she says that i t was not a true allergy, just some nausea. PHYSICAL EXAMINATION: VITAL SIGNS: Temperature 36.7, blood pressure 108/67, heart rate is in the 60 s, respirations 16, 97% on room air. GENERAL: Well appearing, lying in bed, no acute distress. MINDY NT: PERRLA. EOMI. Oropharynx clear. Mildly dry mucous membranes. CV: Regular rate and rhythm. No murmurs, gallops, rubs. LUNGS: Clear bilaterally. ABDOMEN: Soft, nontender, nondistended. Mil d left suprapubic tenderness. No flank tenderness. MUSCULOSKELETAL: 5/5 upper and lower extremity strength. NEURO: 2 through 12 intact. PSYCH: Alert and oriented x3, very pleasant. LABORATORY DATA: WBC 7, hemoglobin 13, hematocrit 40, platelets 218. Sodium 142, potassium 3.4, chl oride 105, carbon dioxide 24, creatinine 0.8, glucose 98, calcium 9.5. Negative . Abdominal ultrasound showing moderate left hydronephrosis secondary to left ureteral 13 x 5 mm calcul us. ASSESSMENT AND PLAN: 1. Left ureteral stone: It has been symptomatic for 3 weeks with worsening pain today. Concern for possible pyelo on top of this. Urology has been consulted and will likely place stent tomorrow and plan for lithotripsy. 2. Acute abdominal pain, again secondary to stone. We will provide as needed Toradol. 3. Pyuria: Given acute new symptoms of sweats and chills, possible concern for infection, and posit david UA, we will treat with ceftriaxone until culture back. 4. THC use. Counseled on cessation. 5. Deep venous thrombosis prophylaxis: Low risk. 6. Diet regular. Nothing by mouth after midnight. DISPOSITION: Patient warrants observation admission given acute abdominal pain and kidney stone requ iring IV Toradol and urologic intervention. /[id number]/MODL
[2017-10-30] MEDS: TAMSULOSIN HCL 0.4 MG CAP PO SCH (18:47)
[2017-10-30] MEDS: ZOLPIDEM TARTRATE 5 MG TAB PO PRN (21:49)
[2017-10-31] MEDS: VITAMIN B COMPLEX 1 EA CAP/TAB PO SCH (08:08)
[2017-10-31] MEDS: MULTIVITAMINS 1 EACH TAB PO SCH (08:09)
[2017-10-31] MEDS ORDERED: Herbals/Supplements -Info Only PO SCH (09:00)
[2017-10-31] MEDS ORDERED: NALOXONE HCL 0.4 MG/ML INJ IVP PRN (10:48)
[2017-10-31] MEDS ORDERED: HYDROmorphONE/DILAUDID 6 MG/30 ML PCA IV PRN (10:48)
--- NOTE | 2017-10-31 11:33 | ASMTCMCOM ---
CM Note CM Note Notes: Patient admitted for L uretral stone with hydronephrosis. She is scheduled for surgery tomorrow. At the request of her RN, I went to speak with patient about financial issues surrounding hospitalization. Per Financial Counselor Cari, patient is over income for [facility] and has been told to fill out the financial assistance application. Cari also plans to bring patient a list of providers that may be able to help her as an outpatient. When I reiterated this to patient, she said that she did not request to talk to me and didn't need anything. CM will be available if patient has any discharge needs. Date Signed: 10/31/2017 11:33 AM Electronically Signed By:Marce Aguilar RN
--- NOTE | 2017-10-31 15:10 | HOSPPROG ---
Hospitalist Progress Note Assessment/Plan: # acute left ureterolithiasis- patient's pain improved overnight after admission Abdominal x-ray (personally reviewed and interpreted) kidney stone on left- oxygen saturations 95% on RA - urology consulted for intervention - cont IVF - NPO until surgical plan clear - cont prn pain meds # Abnormal UA - suspect 2/2 ureterolithiasis - cont abx until culture returns # Hydronephrosis - on left 2/2 stone- creatinine this am normal 0.6 # proph -ambulating # diet - NPO until OR # dispo- > 2MN as pt will need surgical intervention for ureterolithiasis I have discussed the case with RN - cont IV fluids and prn pain meds Subjective: pain improved overnight Objective: Vital Signs Temp Pulse Resp BP Pulse Ox 36.8 C 68 16 82/59 L 98 10/31/17 08:43 10/31/17 08:43 10/31/17 08:43 10/31/17 08:43 10/31/17 08:43 Laboratory Results 10/31/17 04:44 10/30/17 10/31/17 11/01/17 05:59 05:59 05:59 Intake Total 3400 Balance 3400 - Physical Exam Constitutional: appears nourished Eyes: anicteric sclera Ears, Nose, Mouth, Throat: moist mucous membranes Cardiovascular: regular rate and rhythym Respiratory: no respiratory distress, no rales or rhonchi Gastrointestinal: normoactive bowel sounds Genitourinary: no bladder fullness Skin: warm Musculoskeletal: No asymmetric calves Neurologic: AAOx3 Psychiatric: interacting appropriately, not anxious Lymph, Heme, Immunologic: no cervical LAD ICD10 Worksheet Patient Problems: Problems Problem Status Onset Dehydration Acute Kidney stone on left side Acute
--- NOTE | 2017-10-31 17:25 | PDMN ---
Medical Necessity Medical necessity: Patient meets inpatient criteria per physician note and [facility] [place] M -320 Renal Colic and Kidney Stones (kidney stone on L w/hydronephrosis; abnormal UA; anticipated LOS > 2 midnights for ongoing IV fluids, IV antibiotics and IV Dilaudid via [employer]OP[employer]PECTING SUR[employer]YOR pump and surgical intervention.)
--- NOTE | 2017-10-31 19:05 | SOAPPROG ---
SOAP Progress Note Assessment/Plan: Assessment: Left renal pelvic calculus - asymptomatic since admission, but stone has not passed. Plan: Proceed w/ intraoperative ureteroscopy, laser lithotripsy, and stent placement on . Full consult note dictated (# [id number]) 10/31/17 19:09 Objective: Vital Signs Temp Pulse Resp BP Pulse Ox 36.8 C 67 16 109/66 97 10/31/17 15:22 10/31/17 15:22 10/31/17 15:22 10/31/17 15:22 10/31/17 15:22 10/30/17 10/31/17 11/01/17 05:59 05:59 05:59 Intake Total 591 Balance 591 ICD10 Worksheet Patient Problems: Problems Problem Status Onset Dehydration Acute Kidney stone on left side Acute
[2017-10-31] MEDS: TAMSULOSIN HCL 0.4 MG CAP PO SCH (19:26)
[2017-10-31] MEDS ORDERED: LORazepam 1 MG TAB PO ONE (19:30)
[2017-10-31] MEDS: ZOLPIDEM TARTRATE 5 MG TAB PO PRN (21:49)
--- NOTE | 2017-11-01 06:46 | GCON ---
[f rep st] CONSULTATION UROLOGY CONSULTATION. DATE OF CONSULTATION: 10/31/2017 REFERRED BY: Hospitalist service. REASON FOR CONSULTATION: Symptomatic left renal calculus. HISTORY OF PRESENT ILLNESS: This is a 27-year-old woman who initially started experiencing symptoms related to a left-sided renal calculus as identified on CT scan, approximately done October 01. The patient has had intermittent pain since that time. The pain became severe enough that she presented to the emergency room yesterday afternoon. She was admitted thereafter. Since admission, she has not had any pain. However, she has also not passed her calculus as of yet. The patient denies any fevers, no flu-like symptoms. The patient does have a history of recurrent nephrolithiasis, with her first stone episode being approximately at age 17. She has not required surgical treatment for her stone disease previously. PAST MEDICAL HISTORY: Recurrent nephrolithiasis (as above). Otherwise, healthy. PAST SURGICAL HISTORY: None. ADMISSION MEDICATIONS: None. ALLERGIES: None known. FAMILY HISTORY: One sister has had kidney stones. SOCIAL HISTORY: The patient is single and lives in the [facility]. She denies use of cigarettes nor alcohol. She does smoke marijuana on a daily basis , last used on Sunday. REVIEW OF SYSTEMS: Unremarkable, other than mentioned in the HPI and past medical history. PHYSICAL EXAM: GENERAL: Healthy-appearing white female, lying supine in bed, in no acute distress. She is periodically tearful during my visit today. VITAL SIGNS: Blood pressure 109/66, pulse 67, respirations 16, temperature 36.8 Celsius, oxygen saturations 97% on room air. Height 162 cm, weight 50 kg, BMI 18.9. HEENT: Normocephalic, atraumatic. NECK: Supple. HEART: Regular rate. CHEST: Unlabored respiratory pattern. ABDOMEN: Soft without palpable masses. No obvious organomegaly. BACK: No CVA tenderness to percussion. EXTREMITIES: Warm without cyanosis, clubbing, nor edema. VASCULAR: Normal femoral, dorsalis pedis, and posterior tibial pulses bilaterally. NEUROLOGIC: She is alert and oriented. She answers all questions appropriately with normal mood and affect. LABORATORY DATA: Chemistry panel today is normal, calcium 8.6. Uric acid has not been checked. 10/30/2017 beta HCG is negative. On 10/30/2017 CBC is normal. On 10/30/2017 urinalysis notable for 50-182 red blood cells, 25-50 white blood cells, 1+ epithelial cells, and trace bacteria per high-power field. Urine culture has been collected and revealed nonspecific multi colony growth. RADIOGRAPHIC STUDIES: 10/30/2017 KUB: upon my review, notable for a faintly seen 5 x 3 mm left renal calculus at L3. 10/01/[address] scan: Upon my review, notable for 6 x 4 x 5 mm long the left ureteropelvic junction calculus at L2-3 with mild associated hydronephrosis. No other nephroureterolithiasis is appreciated. IMPRESSION: Long-standing symptomatic left renal pelvic calculus. PLAN: 1. Continue with medical management today. 2. Assuming she does not spontaneously pass the stone in the meantime, proceed with intraoperative ureteroscopy and attempted calculus management with stent placement on . All aspects regarding the surgery were reviewed in detail with the patient today and all of her questions were answered. Thank you for this consultation. /[id number]/MODL MTDD
[2017-11-01] MEDS ORDERED: LORazepam 1 MG TAB PO ONE (08:40)
[2017-11-01] MEDS: MULTIVITAMINS 1 EACH TAB PO SCH (08:50)
[2017-11-01] MEDS: VITAMIN B COMPLEX 1 EA CAP/TAB PO SCH (08:50)
[2017-11-01] MEDS ORDERED: KETOROLAC 15 MG/1 ML SDV IVP ONE ×2 (09:03→19:30)
[2017-11-01] MEDS ORDERED: IOPAMIDOL (ISOVUE-300) 150 ML BTL ONE (10:44)
[2017-11-01] MEDS ORDERED: LIDOCAINE 2% JELLY 20 ML (UROJECT) ONE (10:46)
[2017-11-01] MEDS ORDERED: LORazepam 1 MG TAB PO PRN (11:07)
[2017-11-01] MEDS ORDERED: LR 1,000 ML IV ONE (11:46)
[2017-11-01] MEDS ORDERED: MIDAZOLAM 2 MG/2 ML VIAL IVP ONE (11:49)
[2017-11-01] MEDS ORDERED: MIDAZOLAM 2 MG/2 ML VIAL ONE (11:49)
--- NOTE | 2017-11-01 11:51 | PDANEPAE ---
ANE History of Present Illness Patient presents for Ureteroscopy with holmium laser stone extraction ANE Past Medical History - Pulmonary History Hx Oxygen in Use at Home: No Hx Sleep Apnea: No Sleep Apnea Screening Result - Last Documented: Negative - Endocrine History Hx Diabetes: No - Chronic Pain History Chronic Pain: No ANE Review of Systems Review of Systems: ANE Patient History - Allergies Allergies/Adverse Reactions: No Known Drug Allergies Allergy (Verified 10/30/17 19:49) - Home Medications Home medications: home medication list seen and reviewed Home Medications: Acetaminophen [Tylenol ES 500 mg (*)] 500 mg PO Q6 PRN 10/30/17 [Last Taken 12/16 08:30] Herbals/Supplements -Info Only 1 ea PO DAILY 10/30/17 [Last Taken 10/29/17] Ibuprofen [Motrin (*)] 200 - 600 mg PO DAILY PRN 10/30/17 [Last Taken 10/30/17 10:30] Multivitamins [Multivitamin (*)] 1 each PO DAILY 10/30/17 [Last Taken 10/29/17] Tamsulosin HCl [Flomax 0.4 MG (*)] 0.4 mg PO DAILY@18 10/30/17 [Last Taken 10/30 05:00] Vitamin B Complex [B Complex] 1 each PO DAILY 10/30/17 [Last Taken 10/29/17] - NPO status NPO Status: no food or drink >8 hours NPO Since - Liquids (Date): 11/01/17 NPO Since - Liquids (Time): 00:00 NPO Since - Solids (Date): 11/01/17 NPO Since - Solids (Time): 00:00 - Smoking Hx Smoking Status: Former smoker ANE Labs/Vital Signs - Labs Result Diagrams: 10/30/17 14:32 10/31/17 04:44 - Vital Signs Blood Pressure: 108/62 Heart Rate: 66 Respiratory Rate: 16 O2 Sat (%): 99 Height: 162.56 cm Weight: 49.895 kg ANE Physical Exam - Airway Neck exam: FROM Mallampati Score: Class 1 Mouth exam: normal dental/mouth exam - Pulmonary Pulmonary: no respiratory distress - Cardiovascular Cardiovascular: pulses symmetric bilaterally - ASA Status ASA Status: I ANE Anesthesia Plan Anesthesia Plan: GA w LMA (RBA discussed, patient agrees to proceed)
[2017-11-01] MEDS ORDERED: fentaNYL 100 MCG/2 ML INJ ONE ×2 (11:53→13:18)
[2017-11-01] MEDS ORDERED: PROPOFOL/EMULSION 500 MG/50 ML BOTTLE IV ONE (11:54)
[2017-11-01] MEDS ORDERED: LIDOCAINE 2% 5 ML SDV ONE (11:54)
[2017-11-01] MEDS ORDERED: PROPOFOL 200 MG/20 ML VIAL ONE (11:54)
[2017-11-01] MEDS ORDERED: DEXAMETHASONE 4 MG/ML VIAL ONE (12:09)
[2017-11-01] MEDS ORDERED: KETOROLAC 30 MG/1 ML SDV ONE (12:49)
[2017-11-01] MEDS ORDERED: ONDANSETRON 4 MG/2 ML VIAL ONE (12:51)
[2017-11-01] MEDS ORDERED: HYDROCODONE/APAP 5/325 TAB PO PRN (13:10)
[2017-11-01] MEDS ORDERED: ONDANSETRON 4 MG/2 ML VIAL IVP PRN (13:10)
[2017-11-01] MEDS ORDERED: NALOXONE HCL 0.4 MG/ML INJ IVP PRN (13:10)
[2017-11-01] MEDS ORDERED: fentaNYL 100 MCG/2 ML INJ IVP PRN (13:10)
[2017-11-01] MEDS ORDERED: LR 500 ML IV PRN (13:10)
[2017-11-01] MEDS ORDERED: OXYCODONE/APAP 5/325 TAB PO PRN (13:10)
--- NOTE | 2017-11-01 13:10 | POSTOPPROG ---
Post Op Note Date of Operation: 11/01/17 Surgeon: Lisbet Carrasco (# [id number]) Anesthesia: LMA Pre-op Diagnosis: Left renal pelvic calculus Post-op Diagnosis: Left proximal ureteral calculus Procedure: Cysto, Left RGP, ureteroscopy w/ laser lithotripsy, stent placement Findings: See op note Inf/Abcess present in the surg proc area at time of surgery?: No EBL: Minimal Complications: None Drains: Other (4.7 Fr. x 24 cm left ureteral stent) Specimen(s): None Text Box - Additional Text Additional Text: She should be ready for discharge home later today. Please discharge on narcotic of choice. Rx. placed on chart for Uribel TID (to decrease degree of dysuria).
--- NOTE | 2017-11-01 13:12 | POSTANESTH ---
Post Anesthetic Evaluation Cardiovascular Status: Similar to Pre-Op Cond Respiratory Status: Similar to Pre-op Cond. Level of Consciousness/Mental Status: Can Participate in Eval Pain Control: Adequate, Prn Tx Ordered Nausea/Vomiting Control: Adequate, Prn Tx Ordered Complications Possibly Related to Anesthesia: None Noted
--- NOTE | 2017-11-01 13:32 | GOP ---
[f rep st] OPERATIVE REPORT DATE OF OPERATION: 11/01/2017 SURGEON: Lisbet Carrasco MD ANESTHESIA: Laryngeal mask. PREOPERATIVE DIAGNOSIS: Symptomatic left renal pelvic calculus. POSTOPERATIVE DIAGNOSIS: Symptomatic left proximal ureteral calculus. PROCEDURE PERFORMED: 1. Cystourethroscopy, left retrograde pyelography. 2. Left ureteroscopy with holmium laser calculus lithotripsy. 3. Left ureteral stent placement (4.7-Sinhala by 24 cm). FINDINGS: Left proximal ureteral calculus. SPECIMENS: None. ESTIMATED BLOOD LOSS: Minimal. INDICATIONS: This woman was admitted to the hospital due to intractable symptoms related to a left renal pelvic calculus that was seen on CT scan approximately 1 month ago. KUB during the time of this hospitalization revealed persistence of a left renal versus proximal ureteral calculus. The patient presents for operative management at this time. The indications for the procedure as well as potential risks and any complications were discussed with the patient preoperatively. She appeared to understand, her questions were answered, and she wished to proceed. Written informed surgical consent was thereafter obtained. DESCRIPTION OF PROCEDURE: The patient was brought into the operating room and administered laryngeal mask anesthesia. She was carefully placed in the dorsal lithotomy position on the cystoscopic table. The genital area was sterilely prepped with Betadine scrub and paint, and then draped in the usual sterile fashion. Cystoscopy was performed with a 30-degree lens through a 22-Sinhala sheath. Urethra and bladder were normal. Ureteral orifices were normal in regard to shape and position along the trigone. A 5-Sinhala open-ended ureteral catheter was used to perform retrograde pyelography on the left side. This revealed a filling defect in the proximal ureter at about L3 with mild proximal hydronephrosis and hydroureter. No other obvious filling defects were seen within the ureter nor renal collecting system. I then passed a 0.035 inch hydrophilic guidewire through the ureteral catheter, advanced it proximal to the calculus as noted fluoroscopically, and positioned it within the renal collecting system. The ureteral catheter was removed, and a 10 cm balloon was used to dilate the entire length of the ureter distal to the calculus with 2 separate inflations and deflations of the balloon by maintaining a pressure of 16 atmospheres for about 4 minutes on each occasion. The balloon dilator and cystoscope were then removed while keeping the guidewire in place. Semi-rigid ureteroscopy was performed alongside the guidewire. The calculus was seen in the proximal ureter and a 365 micron holmium laser fiber used to fragment this calculus into minute pieces that appeared to be no larger than 0.5 mm to 1 mm. These stone fragments were not specifically extracted. The ureteroscope was then advanced to the ureteropelvic junction and renal pelvis. No other abnormalities were identified. The ureteroscope was removed and the cystoscope was back loaded over the guidewire. A 4.7-Sinhala by 24 cm hydrophilic ureteral stent was advanced over the guidewire until it was properly positioned as seen fluoroscopically in the kidney and cystoscopically in the bladder. The bladder was then drained of all return which was clear. The instruments were removed and 20 cc of 2% lidocaine injected transurethrally for postoperative analgesic purposes. The patient was also given Toradol 30 mg IV by Anesthesia at the conclusion of the case for postoperative analgesia as well. The patient was then awakened, transferred to a bed, and then taken to the recovery room. She tolerated the procedure well overall. COMPLICATIONS: None. DISPOSITION: She was transferred to the recovery room in stable condition. She can be discharged from my standpoint later this afternoon with narcotic of choice and a prescription that I will place on the chart for Uribel t.i.d. She will need to follow up in my office in approximately 1-2 weeks for ureteral stent removal. /[id number]/MODL MTDD
--- NOTE | 2017-11-01 13:52 | HOSPPROG ---
Hospitalist Progress Note Assessment/Plan: #Acute left ureter stone: lithotripsy today. Toradol , APAP for pain control #Pyuria: due to stone. Culture with > 4 colonies, stop abx #Hydronephrosis: normal Cr #Anxiety: PRN ativan #TCH use: counseled on cessation #DVT ppx: low-risk #Disp: cont inpatient admission for lithotripsy Subjective: very anxious about procedure Objective: Vital Signs Temp Pulse Resp BP Pulse Ox 36.8 C 66 17 109/76 95 11/01/17 13:32 11/01/17 11:51 11/01/17 13:31 11/01/17 13:31 11/01/17 13:32 10/31/17 11/01/17 11/02/17 05:59 05:59 05:59 Intake Total 791 150 Output Total 800 200 Balance -9 -50 - Physical Exam Constitutional: other (tearful) Eyes: PERRL Ears, Nose, Mouth, Throat: moist mucous membranes Cardiovascular: regular rate and rhythym, no murmur, rub, or gallop Respiratory: no respiratory distress Gastrointestinal: normoactive bowel sounds Genitourinary: no bladder fullness Skin: warm Musculoskeletal: full muscle strength Neurologic: AAOx3, CN II-XII Intact Psychiatric: interacting appropriately, other (tearful, anxious) ICD10 Worksheet Patient Problems: Problems Problem Status Onset Dehydration Acute Kidney stone on left side Acute
[2017-11-01] MEDS: PHENAZOPYRIDINE HCL 200 MG TAB PO SCH ×3 (15:05→21:50)
[2017-11-01] MEDS ORDERED: MAGNESIUM HYDROXIDE 30 ML UDCUP PO PRN (19:21)
[2017-11-01] MEDS: oxyCODONE IR 5 MG TAB PO PRN (21:50)
[2017-11-02] MEDS: oxyCODONE IR 5 MG TAB PO PRN ×2 (02:36→08:13)
[2017-11-02] MEDS: VITAMIN B COMPLEX 1 EA CAP/TAB PO SCH (08:13)
[2017-11-02] MEDS: PHENAZOPYRIDINE HCL 200 MG TAB PO SCH (08:13)
[2017-11-02] MEDS: MULTIVITAMINS 1 EACH TAB PO SCH (08:13)
[2017-11-02 08:22] VITALS: BP 97/70; PULSE 59; RESP 16; TEMP 97.5; O2SAT 97
--- NOTE | 2017-11-02 14:34 | ASDISCHSUM ---
Discharge Information Plan Status: Medically Cleared to Leave: Discharge Date:11/02/2017 11:44 AM CM D/C Disposition: ADT D/C Disposition:Home, Routine, Self-Care Projected Discharge Date:11/02/2017 11:44 AM Transportation at D/C: Discharge Delay Reason: Follow-Up Date:11/02/2017 11:44 AM Discharge Slot: Final Diagnosis: Placement Information Patient Contact Information Contact Name:PAVEL Relationship:Mother Address: City: [facility] Phone: State/Zip Code: Email: Financial Information Financial Class:Self-Pay Primary Plan Desc:SELF PAY Primary Plan Number: Secondary Plan Desc: Secondary Plan Number: Assessment Information [facility] CM Progress Note CM Note CM Note Notes: Patient admitted for L uretral stone with hydronephrosis. She is scheduled for surgery tomorrow. At the request of her RN, I went to speak with patient about financial issues surrounding hospitalization. Per Financial Counselor Cari, patient is over income for [facility] [employer] and has been told to fill out the financial assistance application. Cari also plans to bring patient a list of providers that may be able to help her as an outpatient. When I reiterated this to patient, she said that she did not request to talk to me and didn't need anything. CM will be available if patient has any discharge needs. Date Signed: 10/31/2017 11:33 AM Electronically Signed By:Marce Aguilar RN Intervention Information
--- NOTE | 2017-11-02 16:49 | GDS ---
[f rep st] DISCHARGE SUMMARY DISCHARGE DIAGNOSES: 1. Acute left ureter stone. 2. Pyuria. 3. Hydronephrosis. 4. Anxiety. 5. Marijuana use. PROCEDURES: 11/01/2017, laser lithotripsy, left ureteral stent placement. HISTORY OF PRESENT ILLNESS: A pleasant 27-year-old female with history of anxiety, depression, who h as been seen in the ER 3 times since Thanks due to a ureteral stone. Symptoms started with hem aturia and crampy left suprapubic pain. The pain became very sharp today and was occurring in waves. She felt very shaky and had 10 episodes of nonbloody emesis, and that is what prompted her to retur n to the ED. She had intermittent chills and sweats. No fevers. She has been taking Percocet and F jackie per prior ED recommendations at discharge. CT 10/01/2017, showed UPJ stone, 5 x 4.5 mm, but ultrasound 10/30/2017, showed moderate left hydronep hrosis secondary to stone that is 13 x 5 mm, but unchanged position. HOSPITAL COURSE BY PROBLEM: 1. Left ureter stone: This has been symptomatic for several weeks and now with significant hydronep hrosis. Dr. Carrasco performed laser lithotripsy and placed a ureter stent 11/01/2017. Her pain is mi nimal after procedure. She had pyuria on urinalysis but negative culture, so discontinued antibiotic s. She is to follow up with him for stent removal. 2. Acute abdominal pain: Secondary to stone. This was well treated with p.r.n. opioids and Toradol . 3. Pyuria. There was initial concern for pyelonephritis, given sweats, chills, and positive urinaly sis. The culture showed greater than 4 colonies, thus likely contamination, so antibiotics were stop ped. 4. THC use. Counseled on cessation. DISPOSITION: Patient is stable for discharge home. MEDICATIONS: May use Tylenol or Advil as needed for pain. She does have [place] which was previously prescribed, she can continue this. FOLLOWUP: 1. Primary care physician. 2. Dr. Carrasco for stent removal. PHYSICAL EXAM: VITAL SIGNS: Today, temperature 36.4, blood pressure 97/70, heart rates 50s, respira tions 16, 97% on room air. GENERAL: Well appearing, smiling, lying in bed, no acute distress. HEEN T: PERRLA. EOMI. Oropharynx clear. CV: Regular rate and rhythm. No murmurs, gallops, or rubs. LUNGS: Clear to auscultation bilaterally. ABDOMEN: Soft, nontender, nondistended. Positive bowel sounds. : No suprapubic or CVA tenderness. MUSCULOSKELETAL: 5/5 upper and lower extremity stren gth. NEURO: 2 through 12 intact. PSYCH: Alert and oriented x3. /[id number]/MODL
== END 2017-11-02 11:44 | disposition home or self-care (01) | DRG 670 ==
LOC: F1N 18:30 → OBSVTOIN 10-31 15:04
PROVIDERS: ADMIT Internal Medicine; ATTEND Internal Medicine
PROC: 0TC78ZZ Extirpation of Matter from Left Ureter, Via Natural or Artificial Opening Endoscopic (ICD-10-PCS; principal; 2017-11-01 11:45)
PROC: 0T778DZ Dilation of Left Ureter with Intraluminal Device, Via Natural or Artificial Opening Endoscopic (ICD-10-PCS; principal; 2017-11-01 11:45)
DX: N13.6 Pyonephrosis (principal); F41.9 Anxiety disorder, unspecified; F12.90 Cannabis use, unspecified, uncomplicated; Z87.891 Personal history of nicotine dependence; E86.0 Dehydration
CPT/HCPCS: 96374; C1726; C1758; C1769; C2625; G0378; J0696; J1100; J1170; J1885; J2250; J2405; J2704; J3010; Q9967

== ENCOUNTER → 2018-04-09 | Outpatient (CLI) | payer OTHER | LOC: FIMAGING 17:00 | PROVIDERS: ATTEND Advanced Practice Midwife | DX: N83.202 Unspecified ovarian cyst, left side (principal) ==